=== PATIENT | female | born 1935 | race Caucasian/White ===

== ENCOUNTER 2016-09-09 07:00 | Inpatient (IN) | payer OTHER, MEDICARE ==
[~2016-09-09] VITALS: Ht 152.4 cm; Wt 52.0 kg
[2016-09-22 12:27] VITALS: Ht 152.4 cm; Wt 52.0 kg
[2016-09-23] VITALS (21 sets, daily range): BP systolic 110–155; BP diastolic 56–95; PULSE 50–75; RESP 13–24
[2016-09-23] MEDS ORDERED: CEFAZOLIN 2 GM/50 ML (PMX) 50 ML IVPB SCH (08:00)
[2016-09-23] MEDS ORDERED: LACTATED RINGER'S 1,000 ML IV* SCH (08:00)
[2016-09-23] MEDS ORDERED: DIGO125T6 PO (08:56)
[2016-09-23] MEDS ORDERED: THY90 PO (08:56)
[2016-09-23] MEDS ORDERED: RIVA20TA PO (08:56)
[2016-09-23] MEDS ORDERED: METO25TA7 PO (08:56)
[2016-09-23] MEDS ORDERED: ZALE10CA26 PO (08:56)
[2016-09-23] MEDS ORDERED: VALS1TAB5 PO (08:56)
[2016-09-23] MEDS ORDERED: IBUP400T22 PO (08:56)
--- NOTE | 2016-09-23 09:40 | HPN ---
Date/Time of Note Date/Time of Note DATE: 09/23/16 TIME: 09:40 Interval H&P Admission Note Pt. seen H&P reviewed: No system changes EDWIGE SANDOVAL MD Sep 23, 2016 09:40
[2016-09-23] MEDS ORDERED: POLYMYXIN/BACITRACIN 1L IRRIG ONE (09:45)
[2016-09-23] MEDS ORDERED: BUPIVACAINE 0.25% (MPF) 10 ML 10 ML VIAL ONE (09:45)
[2016-09-23] MEDS ORDERED: FENTAnyl 50 MCG/ML VIAL ONE ×2 (10:08→10:28)
[2016-09-23] MEDS ORDERED: PROPOFOL 20 ML ONE (10:08)
[2016-09-23] MEDS ORDERED: SUCCINYLCHOLINE CHLORIDE 100 MG/5 ML SYG IV ONE (10:08)
[2016-09-23] MEDS ORDERED: LIDOCAINE 2% (SDV) 5 ML INJ ONE (10:08)
[2016-09-23] MEDS ORDERED: ROCURONIUM 50 MG INJ ONE (10:08)
[2016-09-23] MEDS ORDERED: METOCLOPRAMIDE 10 MG INJ ONE (10:54)
[2016-09-23] MEDS ORDERED: DEXAMETHASONE 4 MG/ML 1 ML INJ ONE (10:54)
[2016-09-23] MEDS ORDERED: FAMOTIDINE 20 MG INJ ONE (10:54)
[2016-09-23] MEDS ORDERED: ONDANSETRON 4 MG INJ ONE (10:54)
[2016-09-23] MEDS ORDERED: HYDROmorphONE 2 MG/ML SYG ONE (10:59)
[2016-09-23] MEDS ORDERED: EPHEDrine SULFATE 50 MG/5 ML SYG ONE (11:33)
[2016-09-23] MEDS ORDERED: THROMBIN 5000 UNIT VIAL ONE (11:42)
[2016-09-23] MEDS ORDERED: GELATIN SIZE 100 SPONGE ONE (11:42)
[2016-09-23] MEDS ORDERED: FENTAnyl 50 MCG/ML VIAL IV PRN (13:00)
[2016-09-23] MEDS ORDERED: ONDANSETRON 4 MG INJ IV PRN ×2 (13:00→14:30)
[2016-09-23] MEDS ORDERED: DIPHENHYDRAMINE 50 MG INJ IV PRN (13:00)
[2016-09-23] MEDS ORDERED: HYDROmorphONE (0.2 MG/ML) 10ML SYG IV PRN ×2 (13:00)
[2016-09-23] MEDS: DEXTROSE 5%-0.45% NACL 1,000 ML IV SCH (14:04)
[2016-09-23] MEDS ORDERED: HYDROmorphONE 0.2 MG/ML PCA ONE (14:11)
--- NOTE | 2016-09-23 14:18 | OPPN ---
Date/Time of Note Date/Time of Note DATE: 09/23/16 TIME: 14:11 Operative/Procedure Note Pre-Operative Diagnosis Lumbar spinal stenosis at L2, L3, L4, and L5. Post-Operative Diagnosis Same Procedure Central decompressive laminectomy at L2 Central decompressive laminectomy at L3 Central decompressive laminectomy at L4 Central decompressive laminectomy at L5 Baxano transforaminal root decompression L3 on the left Cosmetic wound closure (14 cm) Lateral localizing lumbar radiographs (2) Intraoperative nerve monitoring (2-1/2 hours) Surgeon: EDWIGE SANDOVAL MD Vaccine Specialist: NILA HOWELL Anesthesiologist: FRANCK ZAVALA MD Findings The patient had severe spinal stenosis at L2-L3-L4 and L5. She had epidural lipomatosis at L5-S1. Blood Usage/Administration None Implants/Grafts: Not applicable Estimated blood loss: 50 - 100 ml's Drains 2 medium Hemovac drains employed Specimens Spinous processes of L2-L3-L4 and L5 Epidural lipomatosis from L5-S1 Complications: None Anesthesia type: general EDWIGE SANDOVAL MD Sep 23, 2016 14:18
[2016-09-23] MEDS ORDERED: AL HYDROX/MG HYDROX/SIMETH 30 ML CUP PO PRN (14:30)
[2016-09-23] MEDS ORDERED: BETHANECHOL 25 MG TAB PO PRN (14:30)
[2016-09-23] MEDS ORDERED: DIAZEPAM 5 MG TAB PO PRN (14:30)
[2016-09-23] MEDS ORDERED: NACL 0.9% 3 ML SYG IV SCH (14:30)
[2016-09-23] MEDS ORDERED: NALOXONE (0.4 MG/ML) INJ IV PRN (14:30)
[2016-09-23] MEDS ORDERED: DIPHENHYDRAMINE 50 MG CAP PO PRN (14:30)
[2016-09-23] MEDS ORDERED: PROCHLORPERAZINE 10 MG TAB PO PRN (14:30)
[2016-09-23] MEDS ORDERED: HYDROmorphONE 0.2 MG/ML PCA IV SCH (14:30)
[2016-09-23] MEDS ORDERED: ACETAMINOPHEN 325 MG TAB PO PRN (14:30)
[2016-09-23] MEDS ORDERED: DIAZEPAM 5 MG/ML SYG IM PRN (14:30)
[2016-09-23] MEDS ORDERED: ZOLPIDEM 5 MG TAB PO PRN (14:30)
[2016-09-23] MEDS ORDERED: TRIMETHOBENZAMIDE 100 MG/ML VIAL IM PRN (14:30)
[2016-09-23] MEDS ORDERED: CEPASTAT LOZENGE MT PRN (14:30)
--- NOTE | 2016-09-23 15:28 | RADRPT ---
PROCEDURE: XR Lumbar Spine one view. CLINICAL INDICATION: Low back pain. Intraoperative. TECHNIQUE: Prone portable cross-table lateral. COMPARISON: No prior studies are available for comparison. FINDINGS: For the purposes of this report, the last apparent true disc level is considered to be L5-S1. Based on this, the posterior markers are present with the needle tips at the L2-3 level and L4-5 le nirali. IMPRESSION: 1. Intraoperative imaging as described above. RPTAT: QQ .Yovani Madrigal MD, Date Time Electronically viewed and signed by .Yovani Madrigal MD, on 09/23/2016 15:28 .R/
--- NOTE | 2016-09-23 15:29 | RADRPT ---
PROCEDURE: XR Lumbar Spine one view. CLINICAL INDICATION: Low back pain. Intraoperative. TECHNIQUE: Prone portable cross-table lateral. COMPARISON: Prior study done earlier the same day. FINDINGS: For the purposes of this report, the last apparent true disc level is considered to be L5-S1. Based on this, the posterior surgical instruments are present with the tips at the L2, L3, L4, and L5 spi nous process levels. IMPRESSION: 1. Intraoperative imaging as described above. RPTAT: QQ .Yovani Madrigal MD, MD Date Time Electronically viewed and signed by .Yovani Madrigal MD, MD on 09/23/2016 15:28 .R/
--- NOTE | 2016-09-23 16:08 | OPR ---
DATE OF OPERATION: 09/23/2016 PREOPERATIVE DIAGNOSIS: 1. Multilevel severe spinal stenosis at L2, L3, L4, and L5. 2. Epidural lipomatosis at L5-S1. POSTOPERATIVE DIAGNOSES: 1. Multilevel severe spinal stenosis at L2, L3, L4, and L5. 2. Epidural lipomatosis at L5-S1. OPERATION PERFORMED: 1. Central decompressive laminectomy at L2. 2. Central decompressive laminectomy at L3. 3. Central decompressive laminectomy at L4. 4. Central decompressive laminectomy at L5. 5. Baxano transforaminal root decompression L3 on the left. 6. Excisional biopsy of epidural lipomatosis L5-S1. 7. Cosmetic wound closure (14 cm). 8. Lateral localized lumbar radiographs (2). 9. Intraoperative nerve monitoring (2.5 hours). SURGEON: Jeremiah Huerta MD SCHOOL LABORATORY TECHNICIAN: HOSEA Lopez ANESTHESIA: General endotracheal. ANESTHESIOLOGIST: Delaney Rosenthal MD ESTIMATED BLOOD LOSS: 75 mL, none replaced. DRAINS: Two medium Hemovac drains employed. COMPLICATIONS: None. PERTINENT HISTORY AND PHYSICAL: This is an 81-year-old female with severe back and lower extremity complaints, left greater than right, which have been unrelieved by conservative management. She has undergone a number of diagnostic studies which have demonstrated severe multilevel spinal stenosis and epidural lipomatosis at L5-S1. Treatment options were discussed with the patient, and she elect ed to proceed with surgery. OPERATIVE FINDINGS AT SURGERY: Multilevel severe spinal stenosis at L2, L3, L4, and L5 was confirme d along with the epidural lipomatosis at L5-S1. The baseline intraoperative nerve monitoring reveal ed a decrease in the L2 potential bilaterally of 40%, the L3 potential on the right of 30%, the L4 p otential bilaterally of 30%, the L5 potential bilaterally of 40%. These all returned to normal at t he completion of surgery. OPERATIVE PROCEDURE: With the patient in supine position after satisfactory induction of general en dotracheal anesthesia by Dr. Rosenthal, the patient was turned to the prone kneeling position on the [facility] frame all care. All pressure points were carefully padded. Back was prepped and draped in usu al sterile fashion. Athrombic pumps were applied to the legs below the knees to prevent venous steven is during and after procedure. An indwelling Walsh catheter was also placed preoperatively to facil itate bladder drainage during and after the procedure. Two spinal needles were placed next to what was felt to be the L2 and L5 spinous processes. Lateral roentgenogram was taken to confirm anatomic localization. A 14 cm incision then carried out midline from L2 to the sacrum through skin and sub cutaneous tissue to the deep fascia. Superficial retractors were placed and hemostasis secured with electrocautery. Throughout the procedure, copious amounts of antibacterial irrigating solution wer e used to periodically irrigate the wound. The fascia was incised in midline with a hot knife and b ilateral subperiosteal dissection carried out from L2 to the sacrum. Deep retractors were placed an d deep hemostasis secured with electrocautery. A second intraoperative radiograph was taken with Ko kamar clamps placed in what was felt to be the spinous process of L2, L3, L4, and L5. This was confi rmed with second x-ray. A central decompressive laminectomy at L2, L3, L4, and L5 was then carried out using a Tika right-angle bone rongeur, Anshulell rongeur, Kerrison punches, and curettes. The operating microscope was then moved into place. A medial facetectomy and foraminotomy at L2-3, L3-4 , L4-5, and L5-S1 bilaterally was then carried out using small hand osteotome and mallet, Kerrison p unches, and curettes. At this point, there was still some distal foraminal stenosis at L3 on the le ft, and the Baxano instrumentation was brought onto the field. The ____ probe was placed into the l eft L3 foramen and the guidewire passed in the usual fashion. The neuro probe was then used to isol ate the exiting L3 nerve root. With this having been assured, a 7.5 mm Baxano rasp was selected and inserted into the L3 foramen using the guidewire. Multiple reciprocations were carried out to enla rge the posterior aspect of the foramen. With this having been accomplished, the instrumentation wa s withdrawn. The foramen was flushed with 20 mL of irrigating solution and hemostasis secured with bipolar electrocautery on low setting. Attention was then turned to the L5-S1 level where there was moderately severe epidural lipomatosis circumferentially surrounding the dural sac. This was peeled off of the dorsal aspect of the thecal sac with a Hidalgo dissector and sent to laboratory for pathologic study. The anesthesiologist was then asked to perform a Valsalva maneuver to 40 mmHg, and no spinal fluid leak was noted. The woun d was then closed in layers over 2 medium Hemovac drains; one below the fascia, one above the fascia , using #1 Vicryl Stratafix sutures on the deep paralumbar musculature and deep fascia of the back, 2-0 Vicryl Stratafix sutures in subcu tissue, and a 4-0 Vicryl subcuticular cosmetic closing suture on the skin. Dermabond and sterile compressive dressings were applied. The patient, having tolerat ed the procedure well, was then turned to the supine position onto her bed and extubated by Dr. Rosenthal . She was transported to recovery room in satisfactory condition. At the conclusion of the procedu re, sponge, instrument, and needle counts were all correct. NEED FOR BENCH PRESS OPERATOR: During this spinal surgical procedure, my triage assistant was used to retrac t and protect the spinal nerves and dural sac. My triage assistant also employed the suction catheters to e vacuate blood from the surgical field to improve visualization of the neural structures. The assista nt was medically necessary to facilitate the completion of the surgery in a safe and expeditious man ner. State of [place] regulations, as well as hospital bylaws, preclude the use of non-licensed [facility] care personnel such as operating room technicians, to perform these functions. Throughout the procedure, neural monitoring was carried out by [employer] including EMG, SSEP, and MEP monitoring of the L2, L3, L4, L5, and S1 nerve roots bilaterally along with spinal cord potentials. These were interpreted by neurologist employed by [employer]. Dictated By: JEREMIAH HUERTA MD TM/NTS Conf#: [id number] DID#: [id number] CC: MARLINE STEWART MD;*[facility]*
[2016-09-23] MEDS: CEFAZOLIN 1 GM/50 ML (PMX) 50 ML IVPB SCH (18:17)
--- NOTE | 2016-09-23 19:27 | CONS ---
DATE OF ADMISSION: 09/23/2016 DATE OF CONSULTATION: TYPE OF CONSULTATION: Medical. Thank you, Dr. Sandoval, for asking me to participate in medical management of this patient. REASON FOR CONSULTATION: To manage this patient's atrial fibrillation, hypertension, hypothyroidism . HISTORY OF PRESENT ILLNESS: This 81-year-old female is now in the ICU after undergoing a lumbar spi ne surgery by Dr. Sandoval. The patient had lumbar spinal stenosis and underwent a decompressive la minectomy at the L2, L3, L4, and L5 today by Dr. Sandoval. The patient was having low back pain bef ore surgery. She is now awake and alert. She does have some nausea and did have 1 episode of vomit ing. There is a note on the chart from her primary care physician, Dr. Reilly Coughlin, which detail s the patient's past medical history and current medications. The patient does have a history of at rial fibrillation and was on Xarelto preoperatively. This was stopped 1 week prior to surgery. PAST MEDICAL HISTORY: Remarkable for: 1. Paroxysmal atrial fibrillation. 2. Hypertension. 3. Chronic kidney disease stage III. 4. Peripheral neuropathy. CURRENT MEDICATIONS: Include the followin. Digoxin 0.125 mg a day. 2. Metoprolol XL 25 mg a day. 3. Xarelto, which was discontinued preoperatively. 4. Sawyer thyroid 60 mg a day. 5. Valsartan HCT 160/12.5 daily. 6. Sonata 10 mg nightly for sleep. ALLERGIES: NO KNOWN DRUG ALLERGIES. FAMILY HISTORY: Unremarkable. SOCIAL HISTORY: The patient has never smoked. She does drink alcohol socially. PHYSICAL EXAMINATION: GENERAL: At this time reveals a well-developed female in no apparent distress. VITAL SIGNS: Pulse of 56, O2 sat 97%, blood pressure 113/56, respirations 14. HEENT: Head normocephalic. EYES: Extraocular muscles intact. NOSE AND MOUTH: Normal. NECK: Supple. No neck vein distention. LUNGS: Clear to auscultation. HEART: Regular rhythm. No murmurs, gallops, or rubs. ABDOMEN: Slightly distended, but soft, nontender. EXTREMITIES: No peripheral edema. IMPRESSION: This patient is stable after undergoing a lumbar spine surgery today. The patient is a wake. She does have some nausea and had 1 episode of vomiting. The patient has a history of atrial fibrillation, hypertension, and hypothyroidism. I will manage the patient's medical problems and o rder her medication. PLAN: 1. Resume some routine medications. 2. Check labs in the morning. 3. Postop lumbar spine surgery protocol. 4. I will follow the patient along with you. Dictated By: MARLINE STEWART MD, ND/ANN Conf#: [id number] DID#: [id number] CC: EDWIGE SANDOVAL MD;*End*
[2016-09-23] MEDS: RANITIDINE 150 MG TAB PO SCH (20:26)
[2016-09-24] VITALS (14 sets, daily range): BP systolic 97–134; BP diastolic 49–100; PULSE 58–78; RESP 15–23
[2016-09-24] MEDS: CEFAZOLIN 1 GM/50 ML (PMX) 50 ML IVPB SCH ×3 (02:07→13:02)
[2016-09-24] MEDS: DEXTROSE 5%-0.45% NACL 1,000 ML IV SCH ×3 (02:08→20:04)
--- NOTE | 2016-09-24 07:14 | PN ---
Date/Time of Note Date/Time of Note DATE: 09/24/16 TIME: 07:13 Assessment/Plan Lines/Catheters IV Catheter Type (from Nrsg): Saline Lock Walsh in Place (from Nrsg): Yes Subjective 24 Hr Interval Summary The patient is postop day #1 following a multilevel decompressive laminectomy from L2-L5. She is resting comfortably in bed. Neurovascular structures are intact distally. she is afebrile. Morning lab work is pending. She will be seen by physical therapy 4 times today for ambulation training. We will transfer her to [facility] pending clearance by her select banker. Exam/Review of Systems Vital Signs Vitals Vital Signs Date Time Temp Pulse Resp B/P Pulse Ox O2 Delivery O2 Flow Rate FiO2 09/24/16 06:00 68 19 102/51 100 09/24/16 04:00 98.0 Nasal Cannula 2.0 Intake and Output 09/23/16 09/23/16 09/24/16 15:00 23:00 07:00 Intake Total 1900 ml 970 ml 680 ml Output Total 440 ml 360 ml 200 ml Balance 1460 ml 610 ml 480 ml EDWIGE SANDOVAL MD Sep 24, 2016 07:14
[2016-09-24 07:21] LABS: ADD SCAN DIFF NO
[2016-09-24 07:25] LABS: BASOPHILS % 0.1 % (0.0-2.0); EOSINOPHILS % 0.1 % (0.0-7.0); HEMATOCRIT 27.1 % (37.0-47.0); HEMOGLOBIN 9.3 g/dl (12.0-16.0); LYMPHOCYTES # 0.7 10^3/ul (0.8-2.9); LYMPHOCYTES % 7.7 % (15.0-51.0); MEAN CORPUSCULAR HEMOGLOBIN 33.5 pg (29.0-33.0); MEAN CORPUSCULAR HGB CONC 34.3 g/dl (32.0-37.0); MEAN CORPUSCULAR VOLUME 97.5 fl (82.0-101.0); MEAN PLATELET VOLUME 9.5 fl (7.4-10.4); MONOCYTE # 0.8 10^3/ul (0.3-0.9); MONOCYTES % 9.1 % (0.0-11.0); NEUTROPHIL # 7.1 10^3/ul (1.6-7.5); NEUTROPHILS % 82.8 % (39.0-77.0); PLATELET COUNT 213 10^3/UL (140-415); RED BLOOD COUNT 2.78 10^6/ul (4.20-5.40); RED CELL DISTRIBUTION WIDTH 11.8 % (11.5-14.5); WHITE BLOOD COUNT 8.6 10^3/ul (4.8-10.8)
[2016-09-24 07:39] LABS: ALBUMIN 3.1 g/dl (3.3-4.9)
[2016-09-24 07:40] LABS: POTASSIUM 4.2 mmol/L (3.5-5.1)
[2016-09-24 07:42] LABS: ALBUMIN/GLOBULIN RATIO 1.4; CREATININE 0.87 mg/dl (0.44-1.00); TOTAL PROTEIN 5.3 g/dl (6.1-8.1)
[2016-09-24 07:43] LABS: CALCIUM 8.7 mg/dl (8.4-10.2)
--- NOTE | 2016-09-24 07:51 | CONS ---
Date/Time of Note Date/Time of Note DATE: 09/24/16 TIME: 07:46 Assessment/Plan Assessment/Plan Chief Complaint/Hosp Course 1. she is 1 day post op a lumbar spine surgery for spinal stenosis .She has some nausea and vomiting . 2. Her BP is relatively low and her HR has been slow at times . I will hold digoxin and metoprolol for now and monitor BP and HR . 3. She can be transferred to Ortho 4W . Problems: Consultation Date/Type/Reason Admit Date/Time Sep 23, 2016 at 07:13 Initial Consult Date 24 HR Interval Summary Free Text/Dictation She is one day post op a lumbar spine surgery . She is in the ICU awake and alert . She has some nausea and has had some vomiting . Exam/Review of Systems Vital Signs Vitals Vital Signs Date Time Temp Pulse Resp B/P Pulse Ox O2 Delivery O2 Flow Rate FiO2 09/24/16 06:00 68 19 102/51 100 09/24/16 04:00 98.0 Nasal Cannula 2.0 Intake and Output 09/23/16 09/23/16 09/24/16 15:00 23:00 07:00 Intake Total 1900 ml 970 ml 680 ml Output Total 440 ml 360 ml 200 ml Balance 1460 ml 610 ml 480 ml Exam Constitutional: alert, oriented, well developed Psych: nl mood/affect, no complaints Respiratory: clear to auscultation, normal air movement Cardiovascular: regular rate and rhythm Gastrointestinal: soft Musculoskeletal: nl extremities to inspection Results Result Diagram: 09/24/16 0706 09/24/16 0700 Results 24 hrs Laboratory Tests Test 09/24/16 07:00 09/24/16 07:06 Alanine Aminotransferase (ALT/SGPT) Pending Albumin 3.1 L Albumin/Globulin Ratio Pending Alkaline Phosphatase Pending Anion Gap Pending Aspartate Amino Transf (AST/SGOT) Pending Blood Urea Nitrogen Pending Calcium Level Pending Carbon Dioxide Level Pending Chloride Level 95 L Creatinine Pending Direct Bilirubin Pending Globulin Pending Glucose Level Pending Indirect Bilirubin Pending Potassium Level Pending Sodium Level Pending Total Bilirubin Pending Total Protein Pending Basophils # 0.0 Basophils % 0.1 Eosinophils # 0.0 Eosinophils % 0.1 Hematocrit 27.1 L Hemoglobin 9.3 L Lymphocytes # 0.7 L Lymphocytes % 7.7 L Mean Corpuscular Hemoglobin 33.5 H Mean Corpuscular Hemoglobin Concent 34.3 Mean Corpuscular Volume 97.5 Mean Platelet Volume 9.5 Monocytes # 0.8 Monocytes % 9.1 Neutrophils # 7.1 Neutrophils % 82.8 H Nucleated Red Blood Cells # 0.0 Nucleated Red Blood Cells % 0.0 Platelet Count 213 Red Blood Count 2.78 L Red Cell Distribution Width 11.8 White Blood Count 8.6 Medications Medications Current Medications Cefazolin Sodium/ Dextrose 50 ml @ 100 mls/hr PRE-OP IVPB ; Start 09/23/16 at 08 :00 Lactated Ringer's 1,000 ml @ 20 mls/hr Q24H IV* ; Start 09/23/16 at 08:00 Dextrose/Sodium Chloride (D5-1/2ns) 1,000 ml @ 100 mls/hr Q10H IV Last administered on 09/24/16 02:08; Admin Dose 100 MLS/HR; Start 09/23/16 at 14:04 Acetaminophen/ Hydrocodone Bitart ([place] (5/325)) 1 tab Q4H PRN PO PAIN LEVEL 1 -5; Start 09/23/16 at 14:30 Acetaminophen/ Hydrocodone Bitart 2 tab 2 tab Q4H PRN PO PAIN LEVEL 6-10; Start 09/23/16 at 14:30 Cefazolin Sodium (Ancef 1 Gm/50 ml (Pmx)) 50 ml @ 100 mls/hr Q6 IVPB Last administered on 09/24/16 07:04; Admin Dose 100 MLS/HR; Start 09/23/16 at 18:00; Stop 09/24/16 at 12:29 Zolpidem Tartrate (Ambien) 5 mg HS PRN PO INSOMNIA; Start 09/23/16 at 14:30 Prochlorperazine (Compazine) 10 mg Q4H PRN PO NAUSEA AND/OR VOMITING; Start 09/23/16 at 14:30 Trimethobenzamide HCl (Tigan) 200 mg Q4H PRN IM NAUSEA AND/OR VOMITING; Start 09/23/16 at 14:30 Ondansetron HCl (Zofran Inj) 4 mg Q6H PRN IV NAUSEA AND/OR VOMITING Last administered on 09/24/16 03:03; Admin Dose 4 MG; Start 09/23/16 at 14:30 Al Hydrox/Mg Hydrox/Simethicone (Mag-Al Plus) 15 ml Q4H PRN PO CONSTIPATION; Start 09/23/16 at 14:30 Docusate Sodium (Colace) 100 mg BID PO ; Start 09/24/16 at 09:00 Acetaminophen (Tylenol Tab) 650 mg Q4H PRN PO TEMP GREATER THAN 101F OR WHITE; Start 09/23/16 at 14:30 Ascorbic Acid (Vitamin C) 1,000 mg BID PO ; Start 09/24/16 at 09:00 Ferrous Sulfate (Ferrous Sulfate (Ec)) 325 mg TID PO ; Start 09/24/16 at 09:00 Ranitidine HCl (Zantac) 150 mg BID PO Last administered on 09/23/16 20:26; Admin Dose 150 MG; Start 09/23/16 at 21:00 Diazepam (Valium) 5 mg Q4H PRN PO MUSCLE SPASMS; Start 09/23/16 at 14:30 Diazepam (Valium) 5 mg Q4H PRN IM MUSCLE SPASMS; Start 09/23/16 at 14:30 Phenol (Cepastat Lozenge) 1 lozenge PRN PRN MT SORE THROAT; Start 09/23/16 at 14 :30 Bethanechol Chloride (Urecholine) 25 mg PRN PRN PO UNABLE TO VOID; Start at 14:30 Diphenhydramine HCl (Benadryl) 50 mg Q6H PRN PO PRURITUS; Start 09/23/16 at 14: 30 Hydromorphone HCl (Dilaudid [employer]) Q4PCA IV Last administered on 09/23/16 14:18 ; Admin Dose 6 MG; Start 09/23/16 at 14:30 Naloxone HCl (Narcan) 0.2 mg Q2M PRN IV RR 8 BREATHS/MIN OR LESS; Start at 14:30 Digoxin (Digoxin) 0.125 mg DAILY@13 PO ; Start 09/24/16 at 13:00 Metoprolol Succinate (Toprol Xl) 25 mg DAILY PO ; Start 09/24/16 at 09:00 Thyroid ([place] Thyroid) 60 mg DAILY PO ; Start 09/24/16 at 09:00 Valsartan (Diovan) 160 mg DAILY PO ; Start 09/24/16 at 09:00 Bethanechol Chloride (Urecholine) 25 mg PRN PRN PO UNABLE TO VOID; Start at 08:00 MARLINE STEWART MD Sep 24, 2016 07:51
[2016-09-24] MEDS ORDERED: BETHANECHOL 25 MG TAB PO PRN (08:00)
[2016-09-24] MEDS: FERROUS SULFATE (EC) 325 MG TAB PO SCH ×3 (08:39→21:16)
[2016-09-24] MEDS: THYROID 30 MG TAB PO SCH (08:39)
[2016-09-24] MEDS: DOCUSATE SODIUM 100 MG CAP PO SCH ×2 (08:40→21:16)
[2016-09-24] MEDS: ASCORBIC ACID 500 MG TAB PO SCH ×2 (08:40→21:16)
[2016-09-24] MEDS: HYDROCODONE/APAP (5/325) TAB PO PRN ×2 (08:42→18:44)
[2016-09-24] MEDS: RANITIDINE 150 MG TAB PO SCH ×2 (08:42→21:16)
[2016-09-24] MEDS ORDERED: METOPROLOL (XL) 25 MG TAB PO SCH (09:00)
[2016-09-24] MEDS ORDERED: VALSARTAN 160 MG TAB PO SCH (09:00)
[2016-09-24] MEDS ORDERED: DIGOXIN 0.125 MG TAB PO SCH (13:00)
[2016-09-24 13:12] LABS: ADD UMIC YES; URINE BILIRUBIN (Dip) NEGATIVE (NEGATIVE); URINE BLOOD (Dip) 1+ (NEGATIVE); URINE COLOR LT. YELLOW (YELLOW); URINE GLUCOSE (Dip) NEGATIVE (NEGATIVE); URINE KETONES (Dip) NEGATIVE (NEGATIVE); URINE LEUKOCYTE ESTERASE (Dip) NEGATIVE (NEGATIVE); URINE NITRITE (Dip) NEGATIVE (NEGATIVE); URINE TOTAL PROTEIN (Dip) NEGATIVE (NEGATIVE); URINE UROBILINOGEN (Dip) 0.2 E.U./dL (0.1-1.0)
[2016-09-24 13:37] LABS: BACTERIA,URINE FEW
[2016-09-24] MEDS: DIGOXIN 0.125 MG TAB PO SCH (21:16)
[2016-09-25] MEDS: HYDROCODONE/APAP (5/325) TAB PO PRN ×4 (00:14→15:43)
[2016-09-25 05:35] LABS: ADD SCAN DIFF NO
[2016-09-25 05:50] LABS: BASOPHILS % 0.3 % (0.0-2.0); EOSINOPHILS # 0.4 10^3/ul (0.0-0.5); EOSINOPHILS % 4.4 % (0.0-7.0); HEMATOCRIT 28.5 % (37.0-47.0); HEMOGLOBIN 9.4 g/dl (12.0-16.0); LYMPHOCYTES # 1.2 10^3/ul (0.8-2.9); LYMPHOCYTES % 13.1 % (15.0-51.0); MEAN CORPUSCULAR HEMOGLOBIN 33.2 pg (29.0-33.0); MEAN CORPUSCULAR VOLUME 100.7 fl (82.0-101.0); MEAN PLATELET VOLUME 10.4 fl (7.4-10.4); MONOCYTE # 0.7 10^3/ul (0.3-0.9); MONOCYTES % 6.9 % (0.0-11.0); NEUTROPHIL # 7.1 10^3/ul (1.6-7.5); PLATELET COUNT 233 10^3/UL (140-415); RED BLOOD COUNT 2.83 10^6/ul (4.20-5.40); WHITE BLOOD COUNT 9.4 10^3/ul (4.8-10.8)
[2016-09-25 05:58] LABS: ALBUMIN 3.3 g/dl (3.3-4.9)
[2016-09-25 05:59] LABS: POTASSIUM 4.7 mmol/L (3.5-5.1)
[2016-09-25 06:01] LABS: ALBUMIN/GLOBULIN RATIO 1.37; BILIRUBIN,INDIRECT 0.2 mg/dl (0-1.1); BILIRUBIN,TOTAL 0.2 mg/dl (0.2-1.3); CALCIUM 9.2 mg/dl (8.4-10.2); CREATININE 0.79 mg/dl (0.44-1.00); TOTAL PROTEIN 5.7 g/dl (6.1-8.1)
[2016-09-25] MEDS: DEXTROSE 5%-0.45% NACL 1,000 ML IV SCH (06:04)
--- NOTE | 2016-09-25 07:22 | PN ---
Date/Time of Note Date/Time of Note DATE: 09/25/16 TIME: 07:21 Assessment/Plan Lines/Catheters IV Catheter Type (from Nrs): Saline Lock Walsh in Place (from Nrsg): Yes Subjective 24 Hr Interval Summary Patient is postop day #2 following a multilevel decompressive laminectomy. She did well with physical therapy yesterday. She has 65 cc in her Hemovac this morning.Examination reveals neurovascular structures are intact distally. Her lab work from yesterday reveals elevated liver enzymes. I will defer to Dr. Tse the management of that issue. Physical therapy will get her up 3-4 times a day. I will observe her Hemovac output and will discontinue it when appropriate. She may be able to go home this afternoon if her Hemovac drainage diminishes and physical therapy clears her for discharge Exam/Review of Systems Vital Signs Vitals Vital Signs Date Time Temp Pulse Resp B/P Pulse Ox O2 Delivery O2 Flow Rate FiO2 09/24/16 21:15 78 134/60 09/24/16 19:00 97.7 19 96 09/24/16 12:39 Room Air 09/24/16 10:00 2.0 Intake and Output 09/24/16 09/24/16 09/25/16 15:00 23:00 07:00 Intake Total 840 ml 600 ml 600 ml Output Total 155 ml 240 ml 865 ml Balance 685 ml 360 ml -265 ml Results Result Diagram: 09/25/16 0413 09/25/16 0413 EDWIGE SANDOVAL MD Sep 25, 2016 07:22
[2016-09-25 08:31] VITALS: BP 122/62; RESP 71
[2016-09-25] MEDS: RANITIDINE 150 MG TAB PO SCH (08:39)
[2016-09-25] MEDS: FERROUS SULFATE (EC) 325 MG TAB PO SCH ×2 (08:39→12:55)
[2016-09-25] MEDS: DOCUSATE SODIUM 100 MG CAP PO SCH (08:39)
[2016-09-25] MEDS: ASCORBIC ACID 500 MG TAB PO SCH (08:39)
--- NOTE | 2016-09-25 08:43 | CONS ---
Date/Time of Note Date/Time of Note DATE: 09/25/16 TIME: 08:26 Assessment/Plan Assessment/Plan Chief Complaint/Hosp Course 1. she is 2 days post op a lumbar spine surgery for spinal stenosis . She is feeling better except for some continued back pain . 2. Her BP is in acceptable range . Heart rate is higher . I will restart Digoxin and Metoprolol . 3. Continue PT and current 4. Hyponatremia , will continue to monitor and check urine sodium and urine osm . I discussed limiting oral fluids with her . 5. liver enzyme elevation , could be related to anesthesia , will monitor . Problems: Consultation Date/Type/Reason Admit Date/Time Sep 23, 2016 at 07:13 24 HR Interval Summary Free Text/Dictation She is still having some back pain but less . Constitutional: improved Exam/Review of Systems Vital Signs Vitals Vital Signs Date Time Temp Pulse Resp B/P Pulse Ox O2 Delivery O2 Flow Rate FiO2 09/24/16 21:15 78 134/60 09/24/16 19:00 97.7 19 96 09/24/16 12:39 Room Air 09/24/16 10:00 2.0 Intake and Output 09/24/16 09/24/16 09/25/16 15:00 23:00 07:00 Intake Total 840 ml 600 ml 600 ml Output Total 155 ml 240 ml 865 ml Balance 685 ml 360 ml -265 ml Exam Constitutional: alert, oriented, well developed Psych: nl mood/affect, no complaints Respiratory: clear to auscultation, normal air movement Cardiovascular: regular rate and rhythm Gastrointestinal: soft Musculoskeletal: nl extremities to inspection Results Result Diagram: 09/25/16 0413 09/25/16 0413 Results 24 hrs Laboratory Tests Test 09/24/16 09:50 09/24/16 19:01 09/25/16 04:13 Urine Bacteria FEW Urine Bilirubin NEGATIVE Urine Clarity CLEAR Urine Color LT. YELLOW Urine Epithelial Cells FEW Urine Glucose NEGATIVE Urine Hemoglobin 1+ H Urine Ketones NEGATIVE Urine Leukocyte Esterase NEGATIVE Urine Microscopic RBC 10-25 Urine Microscopic WBC 5-10 Urine Nitrite NEGATIVE Urine Specific [place] 1.015 Urine Total Protein NEGATIVE Urine Urobilinogen 0.2 E.U./dL Urine pH 6.0 Bedside Glucose 113 Alanine Aminotransferase (ALT/SGPT) 99 H Albumin 3.3 Albumin/Globulin Ratio 1.37 Alkaline Phosphatase 122 H Anion Gap 12 Aspartate Amino Transf (AST/SGOT) 76 H Basophils # 0.0 Basophils % 0.3 Blood Urea Nitrogen 11 Calcium Level 9.2 Carbon Dioxide Level 28 Chloride Level 95 L Creatinine 0.79 Direct Bilirubin 0.00 Eosinophils # 0.4 Eosinophils % 4.4 Globulin 2.40 Glucose Level 91 # Hematocrit 28.5 L Hemoglobin 9.4 L Indirect Bilirubin 0.2 Lymphocytes # 1.2 Lymphocytes % 13.1 L Mean Corpuscular Hemoglobin 33.2 H Mean Corpuscular Hemoglobin Concent 33.0 Mean Corpuscular Volume 100.7 Mean Platelet Volume 10.4 Monocytes # 0.7 Monocytes % 6.9 Neutrophils # 7.1 Neutrophils % 75.0 Nucleated Red Blood Cells # 0.0 Nucleated Red Blood Cells % 0.0 Platelet Count 233 Potassium Level 4.7 Red Blood Count 2.83 L Red Cell Distribution Width 12.0 Sodium Level 130 L Total Bilirubin 0.2 Total Protein 5.7 L White Blood Count 9.4 Medications Medications Current Medications Cefazolin Sodium/ Dextrose 50 ml @ 100 mls/hr PRE-OP IVPB ; Start 09/23/16 at 08 :00 Dextrose/Sodium Chloride (D5-1/2ns) 1,000 ml @ 100 mls/hr Q10H IV Last administered on 09/24/16 02:08; Admin Dose 100 MLS/HR; Start 09/23/16 at 14:04 Acetaminophen/ Hydrocodone Bitart ([place] (5/325)) 1 tab Q4H PRN PO PAIN LEVEL 1 -5 Last administered on 09/24/16 18:44; Admin Dose 1 TAB; Start 09/23/16 at 14:30 Acetaminophen/ Hydrocodone Bitart ([place] (5/325)) 2 tab Q4H PRN PO PAIN LEVEL 6 -10 Last administered on 09/25/16 05:38; Admin Dose 2 TAB; Start 09/23/16 at 14: 30 Zolpidem Tartrate (Ambien) 5 mg HS PRN PO INSOMNIA; Start 09/23/16 at 14:30 Trimethobenzamide HCl (Tigan) 200 mg Q4H PRN IM NAUSEA AND/OR VOMITING Last administered on 09/24/16 11:30; Admin Dose 200 MG; Start 09/23/16 at 14:30 Ondansetron HCl (Zofran Inj) 4 mg Q6H PRN IV NAUSEA AND/OR VOMITING Last administered on 09/24/16 03:03; Admin Dose 4 MG; Start 09/23/16 at 14:30 Al Hydrox/Mg Hydrox/Simethicone (Mag-Al Plus) 15 ml Q4H PRN PO CONSTIPATION; Start 09/23/16 at 14:30 Docusate Sodium (Colace) 100 mg BID PO Last administered on 09/24/16 21:16; Admin Dose 100 MG; Start 09/24/16 at 09:00 Acetaminophen (Tylenol Tab) 650 mg Q4H PRN PO TEMP GREATER THAN 101F OR WHITE; Start 09/23/16 at 14:30 Ascorbic Acid (Vitamin C) 1,000 mg BID PO Last administered on 09/24/16 21:16; Admin Dose 1,000 MG; Start 09/24/16 at 09:00 Ferrous Sulfate (Ferrous Sulfate (Ec)) 325 mg TID PO Last administered on 21:16; Admin Dose 325 MG; Start 09/24/16 at 09:00 Ranitidine HCl (Zantac) 150 mg BID PO Last administered on 09/24/16 21:16; Admin Dose 150 MG; Start 09/23/16 at 21:00 Diazepam (Valium) 5 mg Q4H PRN PO MUSCLE SPASMS; Start 09/23/16 at 14:30 Diazepam (Valium) 5 mg Q4H PRN IM MUSCLE SPASMS; Start 09/23/16 at 14:30 Phenol (Cepastat Lozenge) 1 lozenge PRN PRN MT SORE THROAT Last administered on 09/24/16 21:16; Admin Dose 1 LOZENGE; Start 09/23/16 at 14:30 Bethanechol Chloride (Urecholine) 25 mg PRN PRN PO UNABLE TO VOID Last administered on 09/24/16 08:43; Admin Dose 25 MG; Start 09/23/16 at 14:30 Diphenhydramine HCl (Benadryl) 50 mg Q6H PRN PO PRURITUS; Start 09/23/16 at 14: 30 Naloxone HCl (Narcan) 0.2 mg Q2M PRN IV RR 8 BREATHS/MIN OR LESS; Start at 14:30 Thyroid ([place] Thyroid) 60 mg DAILY PO Last administered on 09/24/16 08:39; Admin Dose 60 MG; Start 09/24/16 at 09:00 Bethanechol Chloride (Urecholine) 25 mg PRN PRN PO UNABLE TO VOID; Start at 08:00 Digoxin (Digoxin) 0.125 mg DAILY@13 PO Last administered on 09/24/16 21:16; Admin Dose 0.125 MG; Start 09/24/16 at 20:30 MARLINE STEWART MD Sep 25, 2016 08:39
[2016-09-25] MEDS ORDERED: METOPROLOL (XL) 25 MG TAB PO SCH (09:00)
[2016-09-25] MEDS: THYROID 30 MG TAB PO SCH (10:53)
[2016-09-25] MEDS: DIGOXIN 0.125 MG TAB PO SCH (12:56)
--- NOTE | 2016-09-28 09:46 | DS ---
Date/Time of Note Date/Time of Note DATE: 09/28/16 TIME: 09:39 Discharge Summary Admission/Discharge Info Admit Date/Time Sep 23, 2016 at 07:13 Discharge Date/Time Sep 25, 2016 at 15:55 Final Diagnosis 1. Multilevel severe spinal stenosis at L2, L3, L4, and L5. 2. 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 Appropriate meds were started. Her diet and activity were advanced as tolerated. Pain was well controlled. She was discharged to home in good condition on POD #2. . Home Meds Reported Medications Zaleplon (Sonata) 10 Mg Capsule, 10 MG PO HS Y for INSOMNIA, CAP 09/23/16 Thyroid ([place] Thyroid) 90 Mg Tab, 60 MG PO DAILY, TAB 09/23/16 Metoprolol Succinate* (Toprol XL*) 25 Mg Tab.sr.24h, 25 MG PO DAILY, #30 TAB 09/23/16 Digoxin* (Lanoxin*) 0.125 Mg Tablet, 0.125 MG PO DAILY, TAB 09/23/16 Discontinued Reported Medications Valsartan/Hydrochlorothiazide (Diovan Hct 160-12.5 mg Tab) 1 Each Tablet, 1 EACH PO DAILY, TAB 09/23/16 Ibuprofen* (Ibuprofen*) 400 Mg Tablet, 400 MG PO BID, TAB 09/23/16 Rivaroxaban* (Xarelto*) 20 Mg Tablet, 20 MG PO WITH DINNER, TAB 09/23/16 Follow-up Plan Follow up with Dr. Huerta in 2 weeks. JOSE ALBERTO MILLER Sep 28, 2016 09:46
== END 2016-09-25 15:55 | disposition home or self-care (01) | DRG 519 ==
LOC: EDSTATUS 07:00 → REC 09-23 07:13 → ICU 09-23 14:52 → MS1 09-24 12:25 → UNDODISIN 09-25 15:35
PROVIDERS: ADMIT Orthopaedic Surgery; ATTEND Orthopaedic Surgery
PROC: 00BY0ZZ Excision of Lumbar Spinal Cord, Open Approach (ICD-10-PCS; 2016-09-23)
PROC: 01NB0ZZ Release Lumbar Nerve, Open Approach (ICD-10-PCS; principal; 2016-09-23 10:00)
DX: M48.06 Spinal stenosis, lumbar region (principal); E87.1 Hypo-osmolality and hyponatremia; I48.0 Paroxysmal atrial fibrillation; N18.3 Chronic kidney disease, stage 3 (moderate); G62.9 Polyneuropathy, unspecified; I12.9 Hypertensive chronic kidney disease with stage 1 through stage 4 chronic kidney disease, or unspecified chronic kidney disease; E03.9 Hypothyroidism, unspecified; E88.2 Lipomatosis, not elsewhere classified; R74.8 Abnormal levels of other serum enzymes; Z79.01 Long term (current) use of anticoagulants
CPT/HCPCS: 72020; 80053; 80162; 81001; 81003; 82962; 83935; 84300; 85025; 86850; 86900; 86901; 86920; 87081; 87086; 97116; 97163; 97530; J0330; J0690; J1100; J1170; J2405; J2765; J3010; J3250; J7042; J7120